=== PATIENT | female | born 1975 | race Caucasian/White ===

== ENCOUNTER → 2016-10-07 | Outpatient (REF) ==
--- NOTE | 2016-10-08 05:41 | REP ---
Clinical: Chronic pain . Technique: Internal rotation, external rotation, and Y view left shoulder . Findings: No acute fracture or dislocation. The acromioclavicular and glenohumeral joints are intact. No periarticular calcifications or degenerative changes are appreciated. Sub acromial space is normal. Surrounding soft tissues are unremarkable. Impression: Normal left shoulder radiographs. Signed by Deep Macedo MD 10/08/2016 05:33 A
--- NOTE | 2016-10-08 06:14 | REP ---
Clinical: Pain and disability. Technique: AP, lateral, coned-down views of the lumbar spine. Findings: Three views of the lumbosacral spine demonstrate satisfactory alignment and lordosis without acute fracture / compression injury or subluxation. Mild age-related changes in include subtle endplate sclerosis and minimal disc space narrowing at the L5-S1 and L4-5 levels. Impression: Mild age-related degenerative changes to the lower lumbar spine suggested. No acute fracture / compression injury or subluxation. Signed by Deep Macedo MD 10/08/2016 06:06 A
== END ==
LOC: M SMT 14:03
PROVIDERS: ATTEND Internal Medicine
DX: M51.36 Other intervertebral disc degeneration, lumbar region (principal); M25.512 Pain in left shoulder